=== PATIENT | female | born 1990 | race Caucasian/White ===

== ENCOUNTER 2017-09-10 10:47 | Emergency (ER) | payer SELFPAY ==
[~2017-09-10] VITALS: Ht 167.6 cm; Wt 82.1 kg
[2017-09-10 10:57] VITALS: BP 122/75
--- NOTE | 2017-09-10 11:05 | NUR ---
PT AMBULATED TO ER BED 01
--- NOTE | 2017-09-10 11:06 | NUR ---
27/f bib spouse c/o VAGINAL PRESSURE PAIN radiating to rectum X 2 DAYS. DENIES VAG BLEEDING, DENIES DYSURIA. NO ABD PAIN. PAINFUL INTERCOURSE. 2 MONTHS .LMP: 07/03/17. MED HX: NONE. RX: VITAMINS.DENIES N/V/D; SKIN IS PINK/WARM/DRY; AAOX4 WITH EVEN AND STEADY GAIT; LUNGS CLEAR BL; HR EVEN AND REGULAR; PT DENIES ANY FEVER, CP, SOB, OR COUGH AT THIS TIME; PATIENT STATES PAIN OF 10/10 AT THIS TIME; PATIENT POSITIONED FOR COMFORT; HOB ELEVATED; BEDRAILS UP X2; BED DOWN. ER MD MADE AWARE OF PT STATUS.
--- NOTE | 2017-09-10 11:32 | NUR ---
Patient being evaluated by DR BLANCHARD at bedside.
[2017-09-10 11:33] LABS: APPEARANCE,URINE CLEAR (CLEAR); BILIRUBIN,URINE NEGATIVE (NEGATIVE); BLOOD, URINE NEGATIVE (NEGATIVE); COLOR,URINE YELLOW (YELLOW); LEUKOCYTE ESTERASE ,URINE NEGATIVE (NEGATIVE); NITRITE, URINE NEGATIVE (NEGATIVE); UGLUCOSE NEGATIVE (NEGATIVE)
--- NOTE | 2017-09-10 11:39 | NUR ---
PT C/O VAGINAL PAIN 05/02; NOTIFIED DR BLANCHARD.
[2017-09-10] MEDS ORDERED: ACETAMINOPHEN EXTRA STRENGTH 500 MG TAB PO ONE (11:40)
[2017-09-10 11:45] LABS: EOSINOPHILS # (AUTO) 0.2 K/uL (0-0.4); HEMOGLOBIN 12.3 g/dL (12.0-16.0)
--- NOTE | 2017-09-10 11:47 | NUR ---
US AT BEDSIDE.
[2017-09-10 11:49] LABS: BASOPHILS # (AUTO) 0.4 K/uL (0.00-0.22); BASOPHILS % (AUTO) 3.4 % (0.0-2.0); EOSINOPHILS % (AUTO) 1.9 % (0.0-4.0); HEMATOCRIT 36.3 % (36-48); LYMPHOCYTES # (AUTO) 1.7 K/uL (2.5-16.5); LYMPHOCYTES % (AUTO) 14.2 % (20.5-51.1); MEAN CORPUSCULAR HEMOGLOBIN 30 pg (27-31); MEAN CORPUSCULAR HGB CONC 34 g/dL (33-37); MEAN CORPUSCULAR VOLUME 89 fL (80-94); MONOCYTES # (AUTO) 0.5 K/uL (0.8-1.0); MONOCYTES % (AUTO) 3.8 % (1.7-9.3); NEUTROPHILS # (AUTO) 9.1 K/uL (1.8-7.7); NEUTROPHILS % (AUTO) 76.7 % (42.2-75.2); PLATELET COUNT (AUTO) 260 K/uL (140-450); RED CELL DISTRIBUTION WIDTH 14.8 % (11.6-13.7); WHITE BLOOD COUNT (AUTO) 11.9 K/uL (4.8-10.8)
[2017-09-10 12:39] LABS: ANION GAP 9.9 (8-16); CARBON DIOXIDE 26.7 mmol/L (21-32); CREATININE 0.6 mg/dL (0.6-1.3); POTASSIUM 3.6 mmol/L (3.5-5.1)
[2017-09-10] MEDS ORDERED: ACET-2619 PO (12:48)
[2017-09-10 12:55] LABS: ALBUMIN 3.2 g/dL (3.4-5.0); TOTAL BILIRUBIN 0.5 mg/dL (0.0-1.0)
--- NOTE | 2017-09-10 13:24 | NUR ---
Patient being reevaluated by DR BLANCHARD at bedside.
[2017-09-10] MEDS ORDERED: cefTRIAXone 250 MG in LIDOCAINE MPF 1% - **ER/OR** 0.9 ML IM ONE (13:25)
[2017-09-10] MEDS ORDERED: AZITHROMYCIN 250 MG TAB PO ONE (13:25)
--- NOTE | 2017-09-10 13:57 | NUR ---
Note sadaraymond in EDM - 09/10/17 at 1419 by [facility] Patient discharged with v/s stable. Written and verbal after care instructions given and explained. Patient alert, oriented and verbalized understanding of instructions. Ambulatory with steady gait. All questions addressed prior to discharge. ID band removed. Patient advised to follow up with PMD. Rx of TYLENOL given. Patient educated on indication of medication including possible reaction and side effects. Opportunity to ask questions provided and answered.
[2017-09-10] MEDS ORDERED: diphenhydrAMINE 50 MG/ML VIAL IM ONE (14:10)
--- NOTE | 2017-09-10 14:10 | NUR ---
pt attempted to exit er to lobby, began to feel nauseated, emesis x 1, swelling to face and lips, and pt reported difficultly breathing. pt wheelchaired back to rm 1. patient placed on monitor and storage bin tender and pulse ox. vss. er md alba made aware. new orders given.
--- NOTE | 2017-09-10 14:26 | NUR ---
Patient appears to be resting comfortably in bed. Vital Signs within normal limits. Respirations even and unlabored.WILL CONTINUE TO MONITOR.SLIGHTLY SWOLLEN TO FACE, DENIES SOB AT THIS TIME. Addendum: 09/10/17 at 1448 by [facility] PT STATED " I GOT ZOYA & CARLA BEFORE; DONT HAVE ANY ALLERGY'.
--- NOTE | 2017-09-10 14:47 | NUR ---
Patient appears to be SLEEPING comfortably in bed. Vital Signs within normal limits. Respirations even and unlabored.WILL CONTINUE TO MONITOR.
[2017-09-10 14:58] VITALS: BP 109/67
[2017-09-13 06:28] LABS: CHLAMYDIA TRACHOMATIS AMP DNA Negative (Negative)
== END 2017-09-10 14:58 | disposition home or self-care (01) ==
LOC: MED 10:47
DX: O99.89 Other specified diseases and conditions complicating pregnancy, childbirth and the puerperium (principal); N73.9 Female pelvic inflammatory disease, unspecified; Z3A.08 8 weeks gestation of pregnancy; Z79.899 Other long term (current) drug therapy
CPT/HCPCS: 36415; 76801; 80053; 81003; 81025; 84702; 85025; 86900; 86901; 96372; 99285; J0696; J1200; J2001; Q0092; 87491

== ENCOUNTER 2017-09-11 00:05 | Emergency (ER) | payer SELFPAY ==
[~2017-09-11] VITALS: Ht 167.6 cm; Wt 81.9 kg
[~2017-09-11 00:05] MED LIST: ACET-2619 PO
[2017-09-11 00:15] VITALS: BP 133/73
--- NOTE | 2017-09-11 00:25 | NUR ---
TO ER BED 11
--- NOTE | 2017-09-11 00:30 | NUR ---
PATIENT PRESENTS TO ED WITH C/O WORESENING VAGINAL PAIN . PT STATES SHE IS PARA 1 2, AND WAS RECENTLY SEEN IN ED FOR SAME PROBLEM. DENIES N/V/D; SKIN IS PINK/WARM/DRY; AAOX4 WITH EVEN AND STEADY GAIT; LUNGS CLEAR BL; HR EVEN AND REGULAR; PT DENIES ANY FEVER, CP, SOB, OR COUGH AT THIS TIME; PATIENT STATES PAIN OF 10/10 AT THIS TIME; VSS; PATIENT POSITIONED FOR COMFORT; HOB ELEVATED; BEDRAILS UP X2; BED DOWN. ER MD MADE AWARE OF PT STATUS.
--- NOTE | 2017-09-11 00:50 | NUR ---
ER DR. WEIR @ BEDSIDE.
[2017-09-11] MEDS ORDERED: HYDROcodone/APAP 5/325 MG 1 TAB TAB PO ONE (01:00)
--- NOTE | 2017-09-11 02:50 | NUR ---
CHAPERONED DR WEIR FOR PELVIC EXAM AT BEDSIDE 11
[2017-09-11] MEDS ORDERED: fentaNYL 0.05 MG/ML VIAL IVP ONE ×3 (02:55→05:05)
--- NOTE | 2017-09-11 03:20 | NUR ---
@ BEDSIDE INFORMED PT ABOUT I & D. VSS @ THIS TIME. WILL CONTINUE TO MONITOR.
[2017-09-11] MEDS ORDERED: LIDOCAINE 2% 1000 MG/50 ML VIAL INJ ONE ×2 (03:35)
[2017-09-11] MEDS ORDERED: AMPICILLIN/SULBACTAM 1.5 GM in NACL 0.9% 50 ML IV ONE ×2 (05:50→06:00)
[2017-09-11] MEDS ORDERED: CLINDAMYCIN 600 MG in DEXTROSE 5% 50 ML IV ONE (05:55)
[2017-09-11] MEDS ORDERED: CLINDAMYCIN 600 MG/4 ML VIAL ONE (06:15)
[2017-09-11] MEDS ORDERED: AMPICILLIN/SULBACTAM 1.5 GM VIAL ONE (06:50)
--- NOTE | 2017-09-11 07:19 | NUR ---
LATE ENTRY FOR CLINDAMYCIN IVPB END TIME 0709/11/17.
--- NOTE | 2017-09-11 07:32 | NUR ---
pt endorsed to day shift RN Destin. orders reviewed. no acute s/s of distress noted. Vital signs wnl.
[2017-09-11 07:44] VITALS: BP 106/69
--- NOTE | 2017-09-11 07:44 | NUR ---
Patient discharged with v/s stable. Written and verbal after care instructions given and explained. Patient alert, oriented and verbalized understanding of instructions. Ambulatory with steady gait. All questions addressed prior to discharge. ID band removed. Patient advised to follow up with PMD. Rx of aUGMENTIN AND nORCO #5 given. Patient educated on indication of medication including possible reaction and side effects. Opportunity to ask questions provided and answered.
[2017-09-13 06:28] LABS: CHLAMYDIA TRACHOMATIS AMP DNA Negative (Negative)
== END 2017-09-11 07:44 | disposition home or self-care (01) ==
LOC: MED 00:05
DX: O23.591 Infection of other part of genital tract in pregnancy, first trimester (principal); N76.0 Acute vaginitis; Z3A.08 8 weeks gestation of pregnancy; Z79.899 Other long term (current) drug therapy; Z88.1 Allergy status to other antibiotic agents; Z88.8 Allergy status to other drugs, medicaments and biological substances
CPT/HCPCS: 36415; 87210; 87491; 96365; 96375; 96376; 99284; J2001; J3010; J3490; J0295

== ENCOUNTER 2017-09-12 18:32 | Emergency (ER) | payer SELFPAY ==
[~2017-09-12] VITALS: Ht 167.6 cm; Wt 81.2 kg
[2017-09-12 18:35] VITALS: BP 116/68
--- NOTE | 2017-09-12 18:48 | NUR ---
PATIENT AMBULATED TO BED 12.
--- NOTE | 2017-09-12 18:50 | NUR ---
27F BIB C/O RECHECK OF RT VULVAR ABSCESS DRAINED AT [facility] ER ON Monday09/10/17, AND WAS TOLD TO RETURN FOR RECHECK; PT C/O HEAVY, THICK, VAGINAL BLEEDING, INITALLY WITH CLOTTS ON THE FIRST DAY, UTILIZING 4 PADS/DAY AT THIS TIME; PT C/O RT GLUTEUS PAIN, PRESSURE, NON-RADIATING, 6/10 X YESTERDAY; PT STATES " I THINK IT'S BECAUSE OF THE ABCESS"; PT STATES NO RECENT TRAUMA OR INJURY TO SITE AT THIS TIME; M0 A0; PT STATES 2 MONTHS, 6 DAYS AT THIS TIME; PT AA&OX4, BL LUNG SOUNDS CLEAR, RR EVEN/UNLABORED, PT STATES NO N/V/D AT THIS TIME; PT RESTING IN BED WITH HOB ELEVATED AND IN LOWEST POSITION; POSITIONED FOR COMFORT; ER MD MADE AWARE OF STATUS. WILL CONTINUE TO MONITOR.
--- NOTE | 2017-09-12 19:27 | NUR ---
Pt report given to IGOR JIMENEZ. Transfer of care at this time.
[2017-09-12] MEDS ORDERED: NACL 0.9% 1,000 ML IV ONE (20:15)
[2017-09-12] MEDS ORDERED: KETOROLAC 30 MG/ML VIAL IVP ONE (20:15)
[2017-09-12] MEDS ORDERED: CLINDAMYCIN 900 MG in DEXTROSE 5% 100 ML IV ONE (20:15)
[2017-09-12] MEDS ORDERED: CLINDAMYCIN 900 MG/6 ML VIAL IV ONE (20:43)
[2017-09-12 20:58] LABS: EOSINOPHILS # (AUTO) 0.4 K/uL (0-0.4); HEMOGLOBIN 13.3 g/dL (12.0-16.0); RED BLOOD CELL COUNT(AUTO) 4.52 MIL/uL (4.20-5.40)
[2017-09-12 21:02] LABS: BASOPHILS # (AUTO) 0.7 K/uL (0.00-0.22); HEMATOCRIT 39.7 % (36-48); LYMPHOCYTES # (AUTO) 2.4 K/uL (2.5-16.5); MEAN CORPUSCULAR HEMOGLOBIN 30 pg (27-31); MEAN CORPUSCULAR HGB CONC 34 g/dL (33-37); MEAN CORPUSCULAR VOLUME 88 fL (80-94); MONOCYTES # (AUTO) 0.6 K/uL (0.8-1.0); NEUTROPHILS # (AUTO) 10.3 K/uL (1.8-7.7); PLATELET COUNT (AUTO) 282 K/uL (140-450); RED CELL DISTRIBUTION WIDTH 14.6 % (11.6-13.7); WHITE BLOOD COUNT (AUTO) 14.4 K/uL (4.8-10.8)
[2017-09-12 21:03] LABS: ANION GAP 12.2 (8-16); CARBON DIOXIDE 25.6 mmol/L (21-32); CREATININE 0.6 mg/dL (0.6-1.3); POTASSIUM 3.8 mmol/L (3.5-5.1)
[2017-09-12 21:09] LABS: ALBUMIN 3.7 g/dL (3.4-5.0); TOTAL BILIRUBIN 0.4 mg/dL (0.0-1.0)
[2017-09-12 21:36] LABS: APPEARANCE,URINE CLEAR (CLEAR); BILIRUBIN,URINE NEGATIVE (NEGATIVE); BLOOD, URINE 3+ (NEGATIVE); COLOR,URINE YELLOW (YELLOW); LEUKOCYTE ESTERASE ,URINE NEGATIVE (NEGATIVE); NITRITE, URINE NEGATIVE (NEGATIVE); UGLUCOSE NEGATIVE (NEGATIVE)
--- NOTE | 2017-09-12 21:48 | NUR ---
RECEIVED REPORT FROM RICHY. PT RESTING ON BED WITH FAMILY MEMBER () AT BEDSIDE. WILL CONTINUE TO MONITOR.
[2017-09-12 21:50] LABS: RBC,URINE 0-5 (RARE) /HPF (0-5); WBC,URINE 0-5 (RARE) /HPF (0-5)
--- NOTE | 2017-09-12 22:26 | NUR ---
Patient discharged with v/s stable. Written and verbal after care instructions given and explained. Patient alert, oriented and verbalized understanding of instructions. Wheel Chair Assisted with to car. All questions addressed prior to discharge. ID band removed. Patient advised to follow up with PMD.NO Rx given. Patient educated on indication of medication including possible reaction and side effects. Opportunity to ask questions provided and answered.
[2017-09-12 22:40] VITALS: BP 109/62
== END 2017-09-12 22:26 | disposition home or self-care (01) ==
LOC: MED 18:32
DX: O26.891 Other specified pregnancy related conditions, first trimester (principal); Z48.01 Encounter for change or removal of surgical wound dressing; Z79.899 Other long term (current) drug therapy; Z88.8 Allergy status to other drugs, medicaments and biological substances
CPT/HCPCS: 36415; 80053; 81001; 81025; 83605; 85025; 85610; 85730; 87040; 87086; 96365; 96375; 99284; J1885; J3490; J7030

== ENCOUNTER 2017-10-25 07:41 | Emergency (ER) | payer MEDICAID ==
[~2017-10-25] VITALS: Ht 167.6 cm; Wt 81.8 kg
[2017-10-25 07:47] VITALS: BP 111/74
--- NOTE | 2017-10-25 08:00 | NUR ---
PT AMBULATED TO BED12
--- NOTE | 2017-10-25 08:01 | NUR ---
27/F BIB SELF WITH C/O RASHES ON UPPER EXTREMITIES & TRUNK X 3DAYS WITH THROBBING BELLO. DENIES N/V/D. 15 WKS. LMP 07/09/17; . DENIES N/V/D; SKIN IS PINK/WARM/DRY; AAOX4 WITH EVEN AND STEADY GAIT; LUNGS CLEAR BL; HR EVEN AND REGULAR; PT DENIES ANY FEVER, CP, SOB, OR COUGH AT THIS TIME; PATIENT STATES PAIN OF 7/10 AT THIS TIME. PATIENT POSITIONED FOR COMFORT; HOB ELEVATED; BEDRAILS UP X2; BED DOWN. ER MD MADE AWARE OF PT STATUS.
--- NOTE | 2017-10-25 08:05 | NUR ---
FORMER IN ROOM EVALUATING PT AT THIS TIME
[2017-10-25 08:30] VITALS: BP 113/78
--- NOTE | 2017-10-25 08:30 | NUR ---
Patient discharged with v/s stable. Written and verbal after care instructions given and explained. Patient alert, oriented and verbalized understanding of instructions. Ambulatory with steady gait. All questions addressed prior to discharge. ID band removed. Patient advised to follow up with PMD. Rx of VISTARIL given. Patient educated on indication of medication including possible reaction and side effects. Opportunity to ask questions provided and answered.
== END 2017-10-25 08:30 | disposition home or self-care (01) ==
LOC: MED 07:41
DX: O99.712 Diseases of the skin and subcutaneous tissue complicating pregnancy, second trimester (principal); L50.9 Urticaria, unspecified; Z88.1 Allergy status to other antibiotic agents; Z3A.15 15 weeks gestation of pregnancy
CPT/HCPCS: 81002; 81025; 99283

== ENCOUNTER 2018-05-10 11:17 | Emergency (ER) | payer MEDICAID, OTHER ==
[~2018-05-10] VITALS: Ht 167.6 cm; Wt 87.3 kg
--- NOTE | 2018-05-10 11:19 | NUR ---
PT AMBULATES TO BED 2
[2018-05-10 11:22] VITALS: BP 121/80
--- NOTE | 2018-05-10 11:23 | NUR ---
BIB SELF DUE TO R SIDED PRESSURE CHEST PAIN THAT RADIATES DOWN R ARM SINCE LAST NIGHT AFTER FEEDING HER BABY. DENIES N/V/D. C/O SOB . ABLE TO SPEAK IN FULL AND COMPLETE SENTENCES NO ACCESORY MUSCLE USE. PT STATES " I FEEL WEAK AND I HAVE BEEN BLEEDING SINCE I HAD MY BABY 3 WEEKS AGO". TOOK TYLENOL 500MG LAST NIGHT NO RELIEF. TOOK MOTRIN THIS MORNING 4AM. PT. HAS WARM AND DRY SKIN. RR EVEN AND UNLABORED. ER MD MADE AWARE. WILL CONTINUE TO MONITOR. SAFETY PRECAUTIONS IMPLEMENTED.
--- NOTE | 2018-05-10 11:40 | NUR ---
report received from paula rao at this time. pt w/ vss, rr even and unlabored. pt needs met. safety precautions in place. will continue to monitor.
[2018-05-10 12:29] LABS: BASOPHILS % (AUTO) 0.3 % (0.0-2.0); EOSINOPHILS # (AUTO) 0.3 K/uL (0-0.4); EOSINOPHILS % (AUTO) 6.4 % (0.0-4.0); HEMATOCRIT 39.7 % (36-48); HEMOGLOBIN 13.1 g/dL (12.0-16.0); LYMPHOCYTES # (AUTO) 2.1 K/uL (2.5-16.5); LYMPHOCYTES % (AUTO) 44.3 % (20.5-51.1); MEAN CORPUSCULAR HEMOGLOBIN 31 pg (27-31); MEAN CORPUSCULAR HGB CONC 33 g/dL (33-37); MEAN CORPUSCULAR VOLUME 95.1 fL (80-94); MONOCYTES # (AUTO) 0.4 K/uL (0.8-1.0); MONOCYTES % (AUTO) 8.4 % (1.7-9.3); NEUTROPHILS # (AUTO) 1.9 K/uL (1.8-7.7); NEUTROPHILS % (AUTO) 40.6 % (42.2-75.2); PLATELET COUNT (AUTO) 297 K/uL (140-450); RED BLOOD CELL COUNT(AUTO) 4.18 MIL/uL (4.20-5.40); RED CELL DISTRIBUTION WIDTH 12.9 % (11.6-13.7); WHITE BLOOD COUNT (AUTO) 4.7 K/uL (4.8-10.8)
[2018-05-10 12:37] LABS: ANION GAP 11.2 (8-16); CARBON DIOXIDE 27.7 mmol/L (21-32); CREATININE 0.6 mg/dL (0.6-1.3); POTASSIUM 3.9 mmol/L (3.5-5.1)
[2018-05-10 12:44] LABS: ALBUMIN 3.3 g/dL (3.4-5.0); TOTAL BILIRUBIN 0.5 mg/dL (0.0-1.0)
--- NOTE | 2018-05-10 12:44 | NUR ---
pt resting in [facility] at this time w/ vss and rr even and unlabored. safety precautions in place. pt needs met at this time. will continue to monitor.
[2018-05-10] MEDS ORDERED: KETOROLAC 60 MG/2 ML VIAL IM ONE (13:35)
--- NOTE | 2018-05-10 13:40 | NUR ---
PT RESTING COMFORTABLY IN [facility] AT THIS TIME W/ VSS, RR EVEN AND UNLABORED. PT NEEDS MET. SAFETY PRECAUTIONS IN PLACE. WILL CONTINUE TO MONITOR.
[2018-05-10 14:23] VITALS: BP 119/78
--- NOTE | 2018-05-10 14:26 | NUR ---
Patient discharged with v/s stable. Written and verbal after care instructions given and explained. Patient verbalized understanding. Ambulatory with steady gait. All questions addressed prior to discharge. Advised to follow up with PMD.
== END 2018-05-10 14:26 | disposition home or self-care (01) ==
LOC: MED 11:17
DX: R07.89 Other chest pain (principal); Z88.1 Allergy status to other antibiotic agents; Z79.1 Long term (current) use of non-steroidal anti-inflammatories (NSAID)
CPT/HCPCS: 36415; 71045; 80053; 84484; 85025; 93005; 96372; 99285; J1885; Q0092

== ENCOUNTER 2018-09-02 17:46 | Emergency (ER) | payer OTHER ==
[~2018-09-02] VITALS: Ht 165.1 cm; Wt 93.0 kg
[2018-09-02 17:49] VITALS: BP 116/72
--- NOTE | 2018-09-02 18:58 | NUR ---
PT AMBULATED TO ER BED 10
--- NOTE | 2018-09-02 19:16 | NUR ---
PT PRESENTED TO THE ED W/ RIGHT HAND PINKY PAIN. PT STATED SHE WAS CLEANING AND HER ACRYLIC NAIL PULLED UP ON NATURAL NAIL. NO BLEEDING OR DISCHARGE AT THIS TIME. NO REDNESS OR SWELLING. PT STATES 10/10 PAIN TO AREA. DENIES N/V/D. LMP:06/15/18, 3 MONTHS AND 3 DAYS . DENIES VAGINAL BLEEDING OR DISCHARGE. PMH: DENIES RX: PRENATALS
--- NOTE | 2018-09-02 19:27 | NUR ---
Dr. Cisse evaluating patient at bedside.
[2018-09-02 20:27] VITALS: BP 120/71
== END 2018-09-02 19:50 | disposition home or self-care (01) ==
LOC: MED 17:46
DX: S69.91XA Unspecified injury of right wrist, hand and finger(s), initial encounter (principal); L03.011 Cellulitis of right finger; Z88.1 Allergy status to other antibiotic agents; Z79.899 Other long term (current) drug therapy; W23.0XXA Caught, crushed, jammed, or pinched between moving objects, initial encounter; Y93.89 Activity, other specified; Y92.89 Other specified places as the place of occurrence of the external cause; Y99.8 Other external cause status
CPT/HCPCS: 99283

== ENCOUNTER 2020-01-14 10:58 | Emergency (ER) | payer OTHER, SELFPAY ==
[~2020-01-14] VITALS: Ht 167.6 cm; Wt 93.9 kg
[2020-01-14 11:10] VITALS: BP 112/77
--- NOTE | 2020-01-14 11:23 | NUR ---
COVID SWAB DONE.
--- NOTE | 2020-01-14 11:27 | NUR ---
C/O FEVER, DIARRHEA , HEADACHE X TODAY. PT IS A MED TECH & HER PATIENT HAS COVID TEST POSITIVE LAST WEEK. MED HX: DENIES
[2020-01-14 11:35] VITALS: BP 112/77
== END 2020-01-14 11:35 | disposition home or self-care (01) ==
LOC: EEVIPCON 10:58 → MED 10:58
DX: R50.9 Fever, unspecified (principal); Z20.828 Contact with and (suspected) exposure to other viral communicable diseases; R19.7 Diarrhea, unspecified; Z79.899 Other long term (current) drug therapy; Z88.1 Allergy status to other antibiotic agents
CPT/HCPCS: 99283; U0003

== ENCOUNTER 2020-11-25 22:13 | Inpatient (IN) | payer OTHER, SELFPAY ==
[~2020-11-25] VITALS: Ht 167.6 cm; Wt 105.2 kg
[2020-11-25] MEDS: LACTATED RINGERS 1,000 ML IV SCH (00:02)
[2020-11-25] MEDS ORDERED: LACTATED RINGERS 500 ML IV ONE (22:25)
[2020-11-25] MEDS ORDERED: CARBOPROST 250 MCG/ML AMP IM PRN (22:25)
[2020-11-25] MEDS ORDERED: METHYLERGONOVINE 0.2 MG/ML AMP IM PRN (22:25)
[2020-11-25] MEDS ORDERED: OXYTOCIN 20 UNITS in LACTATED RINGERS 1,000 ML IV SCH (22:25)
[2020-11-25 23:04] LABS: BASOPHILS % (AUTO) 0.3 % (0.0-2.0); EOSINOPHILS # (AUTO) 0.3 K/uL (0-0.4); EOSINOPHILS % (AUTO) 3.5 % (0.0-4.0); HEMATOCRIT 34.1 % (36-48); HEMOGLOBIN 11.5 g/dL (12.0-16.0); LYMPHOCYTES # (AUTO) 2.1 K/uL (2.5-16.5); MEAN CORPUSCULAR HEMOGLOBIN 31 pg (27-31); MEAN CORPUSCULAR HGB CONC 34 g/dL (33-37); MONOCYTES # (AUTO) 0.8 K/uL (0.8-1.0); NEUTROPHILS # (AUTO) 5.6 K/uL (1.8-7.7); NEUTROPHILS % (AUTO) 63.2 % (42.2-75.2); PLATELET COUNT (AUTO) 268 K/uL (140-450); RED BLOOD CELL COUNT(AUTO) 3.67 MIL/uL (4.20-5.40); RED CELL DISTRIBUTION WIDTH 14.5 % (11.6-13.7); WHITE BLOOD COUNT (AUTO) 8.9 K/uL (4.8-10.8)
[2020-11-25] MEDS ORDERED: PNV91TAB8 PO (23:09)
[2020-11-25 23:21] LABS: ALBUMIN 2.7 g/dL (3.4-5.0); ANION GAP 11.8 (8-16); CARBON DIOXIDE 25.1 mmol/L (21-32); CREATININE 0.6 mg/dL (0.6-1.3); POTASSIUM 3.9 mmol/L (3.5-5.1); TOTAL BILIRUBIN 0.2 mg/dL (0.0-1.0)
[2020-11-26 00:09] VITALS: BP 121/68
[2020-11-26] MEDS ORDERED: OXYTOCIN 20 UNITS/LR PREMIX 1,000 ML IV ONE (00:13)
[2020-11-26 02:18] LABS: APPEARANCE,URINE CLEAR (CLEAR); BILIRUBIN,URINE NEGATIVE (NEGATIVE); BLOOD, URINE NEGATIVE (NEGATIVE); COLOR,URINE YELLOW (YELLOW); LEUKOCYTE ESTERASE ,URINE NEGATIVE (NEGATIVE); NITRITE, URINE NEGATIVE (NEGATIVE); UGLUCOSE NEGATIVE (NEGATIVE)
[2020-11-26] MEDS: LACTATED RINGERS 1,000 ML IV SCH ×2 (05:10→12:42)
--- NOTE | 2020-11-26 08:42 | NUR ---
PATIENT HAS BEEN SCREENED AND CATEGORIZED LOW NUTRITION RISK. PATIENT WILL BE SEEN WITHIN 7 DAYS OF ADMISSION. 12/02/[address]
[2020-11-26 19:45] VITALS: BP 111/57
[2020-11-26] MEDS ORDERED: MORPHINE SULFATE 5 MG/ML VIAL IVP PRN (23:55)
[2020-11-26] MEDS ORDERED: ONDANSETRON 4 MG/2 ML VIAL IVP PRN (23:55)
[2020-11-26] MEDS ORDERED: MORPHINE SULFATE 10 MG/ML VIAL ONE (23:58)
[2020-11-27] MEDS ORDERED: MISOPROSTOL 200 MCG TAB ONE (01:47)
[2020-11-27] MEDS ORDERED: OXYTOCIN 20 UNITS/LR PREMIX 1,000 ML IV ONE (01:48)
--- NOTE | 2020-11-27 02:08 | NUR ---
RESPONDED TO RAPID RESPONSE WITH RT PRESYBETERIAN. PT ON A SIMPLE MASK SPO2 100% HR 91 BP 118/63. PT ALERT. MD AT BEDSIDE.
[2020-11-27] MEDS ORDERED: OXYTOCIN 10 UNITS/ML VIAL IM PRN (02:10)
[2020-11-27] MEDS ORDERED: METHYLERGONOVINE 0.2 MG/ML AMP IM PRN (02:10)
[2020-11-27] MEDS ORDERED: bisacodyL 5 MG TABEC PO PRN (02:10)
[2020-11-27] MEDS ORDERED: MEASLES, MUMPS, AND RUBELLA 1 VIAL SQVAC ONE (02:10)
[2020-11-27] MEDS ORDERED: IBUPROFEN 800 MG TAB PO PRN (02:10)
[2020-11-27] MEDS ORDERED: SIMETHICONE 80 MG TAB.CHEW PO PRN (02:10)
[2020-11-27] MEDS ORDERED: METHYLERGONOVINE 0.2 MG TAB PO PRN (02:10)
[2020-11-27] MEDS ORDERED: DOCUSATE SODIUM 100 MG GELCAP PO PRN (02:10)
[2020-11-27] MEDS ORDERED: BENZOCAINE/MENTHOL 20%-0.5% 60 GM CAN TP PRN (02:10)
[2020-11-27] MEDS ORDERED: METHYLERGONOVINE 0.2 MG/ML AMP ONE (02:18)
[2020-11-27 02:19] LABS: BASOPHILS % (AUTO) 0.2 % (0.0-2.0); EOSINOPHILS # (AUTO) 0.1 K/uL (0-0.4); EOSINOPHILS % (AUTO) 0.4 % (0.0-4.0); HEMATOCRIT 31.1 % (36-48); HEMOGLOBIN 10.4 g/dL (12.0-16.0); LYMPHOCYTES # (AUTO) 1.6 K/uL (2.5-16.5); LYMPHOCYTES % (AUTO) 12.9 % (20.5-51.1); MEAN CORPUSCULAR HEMOGLOBIN 31 pg (27-31); MEAN CORPUSCULAR HGB CONC 33 g/dL (33-37); MEAN CORPUSCULAR VOLUME 93.9 fL (80-94); MONOCYTES # (AUTO) 0.5 K/uL (0.8-1.0); NEUTROPHILS # (AUTO) 10.2 K/uL (1.8-7.7); NEUTROPHILS % (AUTO) 82.5 % (42.2-75.2); PLATELET COUNT (AUTO) 230 K/uL (140-450); RED BLOOD CELL COUNT(AUTO) 3.31 MIL/uL (4.20-5.40); RED CELL DISTRIBUTION WIDTH 14.6 % (11.6-13.7); WHITE BLOOD COUNT (AUTO) 12.4 K/uL (4.8-10.8)
[2020-11-27 02:35] LABS: PROTHROMBIN TIME 9.4 secs (10.8-13.4)
[2020-11-27 02:38] LABS: ALBUMIN 2.3 g/dL (3.4-5.0); ANION GAP 11.8 (8-16); CARBON DIOXIDE 22.8 mmol/L (21-32); CREATININE 0.6 mg/dL (0.6-1.3); POTASSIUM 3.6 mmol/L (3.5-5.1); TOTAL BILIRUBIN 0.4 mg/dL (0.0-1.0)
[2020-11-27] MEDS: IBUPROFEN 600 MG TAB PO PRN ×2 (06:47→13:45)
[2020-11-27 07:45] LABS: BASOPHILS % (AUTO) 0.3 % (0.0-2.0); EOSINOPHILS % (AUTO) 0.1 % (0.0-4.0); HEMATOCRIT 31.5 % (36-48); HEMOGLOBIN 10.5 g/dL (12.0-16.0); LYMPHOCYTES # (AUTO) 1.8 K/uL (2.5-16.5); LYMPHOCYTES % (AUTO) 9.6 % (20.5-51.1); MEAN CORPUSCULAR HEMOGLOBIN 31 pg (27-31); MEAN CORPUSCULAR HGB CONC 33 g/dL (33-37); MEAN CORPUSCULAR VOLUME 92.9 fL (80-94); MONOCYTES # (AUTO) 1.1 K/uL (0.8-1.0); NEUTROPHILS # (AUTO) 15.9 K/uL (1.8-7.7); PLATELET COUNT (AUTO) 244 K/uL (140-450); RED BLOOD CELL COUNT(AUTO) 3.39 MIL/uL (4.20-5.40); RED CELL DISTRIBUTION WIDTH 14.2 % (11.6-13.7); WHITE BLOOD COUNT (AUTO) 18.9 K/uL (4.8-10.8)
[2020-11-27] MEDS ORDERED: LACTATED RINGERS 1,000 ML IV SCH (09:55)
[2020-11-28 06:35] LABS: HEMATOCRIT 26.3 % (36-48); HEMOGLOBIN 8.9 g/dL (12.0-16.0)
== END 2020-11-28 21:00 | disposition home or self-care (01) | DRG 560 ==
LOC: EEVIPCON 22:13 → MLD 22:13 → MFCC 11-27 08:30
PROVIDERS: ADMIT Obstetrics & Gynecology; ATTEND Obstetrics & Gynecology
PROC: 10E0XZZ Delivery of Products of Conception, External Approach (ICD-10-PCS; principal; 2020-11-27)
PROC: 3E0234Z Introduction of Serum, Toxoid and Vaccine into Muscle, Percutaneous Approach (ICD-10-PCS; 2020-11-28)
DX: O80 Encounter for full-term uncomplicated delivery (principal); Z20.822 Contact with and (suspected) exposure to COVID-19; Z37.0 Single live birth; Z3A.40 40 weeks gestation of pregnancy; Z23 Encounter for immunization
CPT/HCPCS: 36415; 76815; 80053; 81003; 82948; 85018; 85025; 85384; 85610; 85730; 86592; 86886; 86900; 86901; 86920; 90715; J2210; J2270; J2405; J2590; J7120

== ENCOUNTER 2022-08-05 06:33 | Day surgery (SDC) | payer OTHER ==
[2022-08-04 11:52] LABS: BASOPHILS % (AUTO) 0.5 % (0.0-2.0); EOSINOPHILS # (AUTO) 0.3 K/uL (0-0.4); EOSINOPHILS % (AUTO) 3.3 % (0.0-4.0); HEMATOCRIT 38.6 % (36-48); HEMOGLOBIN 13.3 g/dL (12.0-16.0); LYMPHOCYTES # (AUTO) 3.4 K/uL (2.5-16.5); MEAN CORPUSCULAR HEMOGLOBIN 30 pg (27-31); MEAN CORPUSCULAR HGB CONC 35 g/dL (33-37); MEAN CORPUSCULAR VOLUME 88.2 fL (80-94); MONOCYTES # (AUTO) 0.7 K/uL (0.8-1.0); MONOCYTES % (AUTO) 6.8 % (1.7-9.3); NEUTROPHILS # (AUTO) 5.8 K/uL (1.8-7.7); NEUTROPHILS % (AUTO) 56.4 % (42.2-75.2); PLATELET COUNT (AUTO) 402 K/uL (140-450); RED BLOOD CELL COUNT(AUTO) 4.38 MIL/uL (4.20-5.40); RED CELL DISTRIBUTION WIDTH 13.3 % (11.6-13.7); WHITE BLOOD COUNT (AUTO) 10.4 K/uL (4.8-10.8)
[2022-08-04 12:05] LABS: ALBUMIN 4.1 g/dL (3.4-5.0); ANION GAP 9.6 (8-16); CREATININE 0.5 mg/dL (0.6-1.3); POTASSIUM 4.6 mmol/L (3.5-5.1); TOTAL BILIRUBIN 0.5 mg/dL (0.0-1.0)
[~2022-08-05] VITALS: Ht 170.2 cm; Wt 98.4 kg
[~2022-08-05 06:33] MED LIST changes: -ACET-2619 PO; +PNV91TAB8 PO
[2022-08-05] MEDS ORDERED: BUPIVACAINE-MPF/EPI 0.25% 30 ML VIAL INJ ONE (07:27)
[2022-08-05] MEDS ORDERED: DEXAMETHASONE 4 MG/ML VIAL ONE ×2 (14:40→15:07)
[2022-08-05] MEDS ORDERED: SUCCINYLCHOLINE CHLORIDE 200 MG/10 ML VIAL IVP ONE ×2 (14:40→14:59)
[2022-08-05] MEDS ORDERED: ROCURONIUM 50 MG/5 ML VIAL IV ONE ×2 (14:40→14:59)
[2022-08-05] MEDS ORDERED: PROPOFOL 200 MG/20 ML VIAL IV ONE ×2 (14:40→14:59)
[2022-08-05] MEDS ORDERED: SUGAMMADEX SODIUM 200 MG/2 ML VIAL IV ONE ×2 (14:40→15:50)
[2022-08-05] MEDS ORDERED: MEPERIDINE 50 MG/ML SYR ONE (14:40)
[2022-08-05] MEDS ORDERED: SEVOFLURANE 250 ML BTL INH ONE (14:40)
[2022-08-05] MEDS ORDERED: fentaNYL citrate 0.05 MG/ML VIAL ONE (14:48)
[2022-08-05] MEDS ORDERED: ONDANSETRON 4 MG/2 ML VIAL ONE ×2 (15:07→18:50)
[2022-08-05] MEDS ORDERED: MEPERIDINE 25 MG/ML SYR ONE ×2 (15:46)
[2022-08-05] MEDS ORDERED: MEPERIDINE 25 MG/ML SYR IVP PRN (16:30)
[2022-08-05] MEDS ORDERED: ONDANSETRON 4 MG/2 ML VIAL IVP PRN (16:30)
[2022-08-05] MEDS ORDERED: diphenhydrAMINE 50 MG/ML VIAL IVP PRN (16:30)
[2022-08-05] MEDS ORDERED: LACTATED RINGERS 1,000 ML IV SCH (16:30)
[2022-08-05] MEDS: HYDROmorphone 1 MG/ML AMP IVP PRN ×4 (16:30→17:00)
[2022-08-05] MEDS ORDERED: HYDROmorphone PFS 2 MG/ML SYR ONE (16:46)
[2022-08-05] MEDS ORDERED: oxyCODONE/APAP 5/325 MG 1 TAB TAB PO PRN (19:05)
[2022-08-05] MEDS ORDERED: SIMETHICONE 80 MG TAB.CHEW PO PRN (19:05)
== END 2022-08-05 22:30 | disposition home or self-care (01) ==
LOC: MDS 06:33 → MMU 06:34 → MDS 22:30
PROVIDERS: ATTEND Obstetrics & Gynecology
DX: N83.202 Unspecified ovarian cyst, left side (principal); N83.201 Unspecified ovarian cyst, right side; R10.2 Pelvic and perineal pain; Z88.1 Allergy status to other antibiotic agents; E66.9 Obesity, unspecified; Z79.899 Other long term (current) drug therapy; Z20.822 Contact with and (suspected) exposure to COVID-19
CPT/HCPCS: 36415; 58662; 80053; 85025; 86886; 86900; 86901; 87426; J0330; J0690; J1100; J1170; J2175; J2405; J2704; J3010; J3490; J7060